=== PATIENT | female | born 1990 | race American Indian/Alaskan Native ===

== ENCOUNTER 2019-10-24 15:34 | Inpatient (IN) | payer OTHER ==
[~2019-10-24] VITALS: Ht 157.5 cm; Wt 93.9 kg
[2019-11-20] MEDS ORDERED: PRENATAL TABLE1 EAC2 PO (02:57)
== END 2019-11-22 14:39 | disposition home or self-care (01) | DRG 807 ==
LOC: LDR 11-20 02:44 → OB/GYN 11-20 08:26 → LDR 11-22 11:30 → OB/GYN 11-22 14:39
PROVIDERS: ADMIT Obstetrics & Gynecology; ATTEND Obstetrics & Gynecology
PROC: 10E0XZZ Delivery of Products of Conception, External Approach (ICD-10-PCS; principal; 2019-11-20)
PROC: 0KQM0ZZ Repair Perineum Muscle, Open Approach (ICD-10-PCS; 2019-11-20)
PROC: 4A1HXFZ Monitoring of Products of Conception, Cardiac Rhythm, External Approach (ICD-10-PCS; 2019-11-20)
PROC: 3E033VJ Introduction of Other Hormone into Peripheral Vein, Percutaneous Approach (ICD-10-PCS; 2019-11-20)
DX: O70.1 Second degree perineal laceration during delivery (principal); Z37.0 Single live birth; Z3A.39 39 weeks gestation of pregnancy

== ENCOUNTER → 2021-05-10 | Emergency (ER) | payer OTHER ==
[~2021-05-10] VITALS: Ht 170.2 cm; Wt 97.5 kg
[~2021-05-10] MED LIST: PRENATAL TABLE1 EAC2 PO
== END | disposition home or self-care (01) ==
LOC: ER 11:45
DX: N39.0 Urinary tract infection, site not specified (principal); D64.89 Other specified anemias; Z20.822 Contact with and (suspected) exposure to COVID-19